=== PATIENT | female | born 1970 | race Caucasian/White ===

== ENCOUNTER 2018-08-22 17:52 | Emergency (ER) | payer SELFPAY ==
[~2018-08-22] VITALS: Ht 154.9 cm; Wt 68.5 kg
[2018-08-22 18:00] VITALS: Ht 154.9 cm; Wt 68.5 kg
[2018-08-22 21:02] VITALS: BP 107/61
== END 2018-08-22 21:02 | disposition home or self-care (01) ==
LOC: ED 17:52
DX: J20.9 Acute bronchitis, unspecified (principal)
CPT/HCPCS: 87804; J1885